=== PATIENT | female | born 1970 | race Caucasian/White ===

== ENCOUNTER 2018-07-16 08:07 | Emergency (ER) | payer BC ==
--- OUTSIDE RECORDS SUMMARY | 2018-07-16 08:16 | XMS REPORT ---
:1970 External Reference #:[id number] Author Organization [employer] Address [address] [place] [address] Phone [phone] Care Team Providers Name Role Phone Renate Davis MD Care Team Information Office Clerk Unavailable Renate Davis MD Primary Care Physician Unavailable Payers Type Date Identification Numbers Payment Provider Subscriber Commercial Policy Number: [id number] VANDA Laura Casey PayID: [id number] [address] [address] [place] [address] Commercial Effective: 2011 Policy Number: [id number] VANDA Laura Casey Expires: 2014 Group Number: [id number] [address] [address] PayID: [id number] [place] [address] Commercial Expires: 02/11/2018 Policy Number: Lifetime Benefits Elmer Casey [id number] [facility] PayID: [id number] [address] [place] [address] Problems Description No Information Family History Date Family Member(s) Problem(s) Comments Father Non-Hodkins Lymphoma Father Hypercholesterolemia Father Hypertension Mother Congestive Heart Failure (CHF) Mother Chronic Obstructive Pulmonary Disease (COPD) Mother Diabetes First Brother Hypercholesterolemia First Brother Hypertension First Sister Hypercholesterolemia Second Sister Hypercholesterolemia Social History Type Date Description Comments Marital Status Smoke-Free Home is smoke-free 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 2017 every day for 4 days Omeprazole 07/08/ Hx Capsules DR 20mg 30cap 1 by Frank 2014 - s mouth Ronald, 06/18/ every M.D. 2017 day. Fluticasone 07/08/ Hx Suspension 50mcg/Act 1unit 2 sprays Frank Propionate 2014 - each Ronald, 06/18/ nostril M.D. 2017 every day Fexofenadine 08/23/ Hx Tablets 60mg 60tab 1 by Frank HCL 2010 - mouth Ronald, 07/03/ twice a M.D. 2014 day Zithromax Z-Bo 08/23/ Hx Tablets 250mg 1Pak as Frank, 2010 - Ronald, 07/08/ M.D. 2014 Fluticasone 08/23/ Hx Suspension 50mcg/Act 1unit 2 sprays Frank Propionate 2010 - both Ronald, 11/11/ nostrils M.D. 2010 qd Prozac / Hx Capsules 20mg 60cap 1 po qd Unknown 0000 - s 2017 Crestor / Hx Tablets 5mg daily Unknown - 2014 Clonazepam / Hx Tablets 0.125mg Unknown 0000 - Dispers 2017 Rolaids / Hx Unknown 0000 - 2017 Multivitamins / Hx Capsules Unknown 0000 - 2017 Proair HFA / Hx Aerosol 108(90Base 2puffs Unknown 0000 - ) mcg/Act four 06/18/ times a 2017 day as needed for sob Vital Signs Date Vital Result Comment 06/19/2018 Weight 113.00 lb Height 61 inches 5'1" BMI (Body Mass Index) 21.3 kg/m2 BP Systolic 104 mmHg BP Diastolic 72 mmHg Heart Rate 71 /min O2 % BldC Oximetry 99 % Body Temperature 99.1 F Pain Level 0 07/08/2015 Weight 116.00 lb Height 61 inches 5'1" BMI (Body Mass Index) 21.9 kg/m2 BP Systolic 120 mmHg BP Diastolic 80 mmHg Heart Rate 68 /min Body Temperature 98.9 F 08/23/2011 Weight 144.00 lb Height 61.5 inches 5'1.50" BMI (Body Mass Index) 26.8 kg/m2 BP Systolic 102 mmHg BP Diastolic 72 mmHg Heart Rate 66 /min O2 % BldC Oximetry 97 % Body Temperature 98.1 F Results Description No Information Procedures Date CPT Code Description Status 07/15/2015 83148 Fiberoptic Laryngoscopy,Diag. Completed 07/08/2015 67628 Fiberoptic Laryngoscopy,Diag. Completed Encounters Type Date Location Provider CPT E/M Dx Office Visit 07/08/2015 8:00a [place] [id number] [phone] Office Visit 08/23/2011 10:00a [place] [address] [phone] 995.3 Plan of Care No Information Available
[2018-07-16 08:24] VITALS: BP 109/68
[2018-07-16] MEDS ORDERED: Ibuprofen TAB* 600 MG PO ONE (08:33)
--- NOTE | 2018-07-16 08:37 | UC ---
Shoulder Pain HPI - HPI Summary HPI Summary: 47-year-old woman. Chief complaint of right shoulder pain. It started 2 days ago. The pain is severe. There is decreased range of motion of the right shoulder. There is pain with attempted movement of the shoulder. There is no known injury. The patient woke with the pain. No chest pain or shortness of breath. No neck pain. No fevers. She has tried ibuprofen with mild relief. - History of Current Complaint Chief Complaint: UCUpperExtremity Stated Complaint: RIGHT SHOULDER PAIN Time Seen by Provider: 07/16/18 08:32 Hx Last Menstrual Period: couple of months ago Pain Intensity: 7 - Allergies/Home Medications Allergies/Adverse Reactions: Allergies Allergy/AdvReac Type Severity Reaction Status Date / Time hydrocodone Allergy Rash Verified 07/16/18 08:18 Penicillins Allergy Rash Verified 07/16/18 08:18 contrast dye AdvReac Itching Uncoded 07/16/18 08:18 Home Medications: Home Medications Levalbuterol HFA INHALER* [Xopenex Hfa Inhaler*] 2 puff INH QID PRN 07/16/18 [ History Confirmed 07/16/18] PMH/Surg Hx/FS Hx/Imm Hx Other Endocrine History: NO DIABETES Other Cardiovascular History: NO HYPERTENSION Other History Of: Negative For: HIV - Surgical History Surgical History: Yes Surgery Procedure, Year, and Place: 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 TUBAL LIGATION - 1992 - Family History Known Family History: Positive: Cardiac Disease, Diabetes - Social History Alcohol Use: None Substance Use Type: None Smoking Status (MU): Heavy Every Day Tobacco Smoker Type: Cigarettes Amount Used/How Often: 1 PPD Length of Time of Smoking/Using Tobacco: 19 Years Have You Smoked in the Last Year: Yes - Immunization History Most Recent Influenza Vaccination: Not the 2014/2015 Season Review of Systems Constitutional: Negative Skin: Negative Eyes: Negative ENT: Negative Respiratory: Negative Cardiovascular: Negative Motor: Decreased ROM Neurovascular: Negative Musculoskeletal: Decreased ROM - RT SHOULDER Neurological: Negative Psychological: Negative Is Patient Immunocompromised?: No All Other Systems Reviewed And Are Negative: Yes Physical Exam Triage Information Reviewed: Yes Appearance: Well-Appearing, Pain Distress - MILD. INCREASES WITH RT SHOULDER ROM Vital Signs: Initial Vital Signs Temp 98.8 F 07/16/18 08:19 Pulse 78 07/16/18 08:19 Resp 16 09/03/18 08:19 BP 109/68 07/16/18 08:19 Pulse Ox 100 07/16/18 08:19 Vital Signs Reviewed: Yes Eye Exam: Normal ENT Exam: Normal Neck exam: Normal Neck: Positive: Supple Respiratory Exam: Normal Respiratory: Positive: Lungs clear Cardiovascular: Positive: RRR Musculoskeletal: Positive: ROM Limited @, Other: - Shoulder extension abduction on the left is 180 with internal rotation T 10. Right shoulder extension and abduction limited to 40 with internal rotation L4 Neurological Exam: Normal Psychological Exam: Normal Skin Exam: Normal Shoulder Course/Dx - Course Course Of Treatment: I recommended ibuprofen 600 mg every 6 hours as needed. The patient can add Tylenol as directed as needed. We decided against a sling so as to avoid frozen shoulder. Follow-up will be with sports medicine and/or orthopedics. - Differential Dx/Diagnosis Provider Diagnoses: RIGHT SHOULDER CALCIFIC TENDONITIS Discharge - Sign-Out/Discharge Documenting (check all that apply): Patient Departure All imaging exams completed and their final reports reviewed: Yes - Discharge Plan Condition: Stable Disposition: HOME Patient Education Materials: Calcific Tendinitis (ED), Shoulder Pain (ED) Forms: *Work Release Referrals: Trang Bernard NP [Primary Care Provider] - [facility] [Outside] Additional Instructions: FOLLOW UP WITH YOUR PRIMARY CARE DOCTOR AND SPORTS MEDICINE/ORTHOPEDICS. DO THE RANGE OF MOTION EXERCISES DISCUSSED. GET RECHECKED FOR ANY WORSENING OF YOUR CONDITION OR QUESTIONS OR CONCERNS. - Billing Disposition and Condition Condition: STABLE Disposition: Home
--- NOTE | 2018-07-16 09:01 | RAD ---
Indication: Right shoulder pain. 4 views of the right shoulder demonstrates no definite fracture. There is likely calcific tendinitis of the distal supraspinatus tendon. No fracture is noted. IMPRESSION: Likely calcific tendinitis of the distal supraspinatus tendon without fracture.
== END 2018-07-16 09:31 | disposition home or self-care (01) ==
LOC: UCCORT 08:07
DX: M75.31 Calcific tendinitis of right shoulder (principal); Z88.6 Allergy status to analgesic agent; Z88.0 Allergy status to penicillin; F17.210 Nicotine dependence, cigarettes, uncomplicated
CPT/HCPCS: 99211; A9270-GY; G0463

== ENCOUNTER 2019-05-14 08:57 | Emergency (ER) | payer BC ==
--- OUTSIDE RECORDS SUMMARY | 2019-05-14 09:12 | XMS REPORT | Continuity of Care Document ---
:1970 External Reference #:[id number] Author Name Ty Napoles M.D. Address [address] [place] [address] Care Team Providers Name Role Phone Cam Cha OD Care Team Information Animal Daycare Provider Unavailable Family History Date Family Member(s) Observation Comments Father High BP Father Lymphoma Mother Diabetes Mother COPD Mother High BP Social History Type Date Description Comments Sex Unknown ETOH Use Denies alcohol use Tobacco Use Start: Unknown Light tobacco smoker (10 or fewer cigarettes/day) Smoking Status Reviewed: 05/04/19 Light tobacco smoker (10 or fewer cigarettes/day) Allergies, Adverse Reactions, Alerts Active Allergies Reaction Severity Comments Date Hydrocodone 05/04/2019 Penicillin 05/04/2019 Contrast Dye 05/04/2019 Medications Description No Active Medications Procedures Date Code Description Status 05/04/2019 37905 Refraction Completed 05/04/2019 25834 Eye Exam New Intermediate Completed Plan of Treatment 05/04/2019 - Ty Napoles M.D.H52.4 PresbyopiaFollow up:MATT Ward DR LH25.13 Age-related nuclear cataract, bilateralFollow up:MATT Ward DR
[2019-05-14 10:02] VITALS: BP 108/67
--- NOTE | 2019-05-14 10:14 | UC ---
Complaint Female HPI - HPI Summary HPI Summary: dysuria x 1 week urine had a bad odder , + frequency , urgency no fever, no chills, no flank pain - History Of Current Complaint Chief Complaint: UCGU Stated Complaint: URINARY Time Seen by Provider: 05/14/19 09:59 Hx Obtained From: Patient Hx Last Menstrual Period: tubal ?: No Onset/Duration: Gradual Onset, Lasting Weeks - 1, Still Present Timing: Constant Severity Initially: Moderate Severity Currently: Moderate Pain Intensity: 2 Character: Burning Aggravating Factor(s): Urination Associated Signs And Symptoms: Positive: Back Pain. Negative: Fever, Vaginal Bleeding/Discharge, Vaginal Discharge, Nausea, Vomiting(# Of Episodes =), Genital Swelling, Genital Blisters, Retained Foregin Body (Specify) - Allergies/Home Medications Allergies/Adverse Reactions: Allergies Allergy/AdvReac Type Severity Reaction Status Date / Time hydrocodone Allergy Rash Verified 05/14/19 09:59 Penicillins Allergy Rash Verified 05/14/19 09:59 contrast dye AdvReac Itching Uncoded 05/14/19 09:59 Home Medications: Home Medications Nicotine GUM* 4MG FRUIT FLAVOR [Nicotine GUM*] 4 mg PO Q1HR 05/14/19 [History Confirmed 05/14/19] PMH/Surg Hx/FS Hx/Imm Hx Respiratory History: Asthma Other History Of: Negative For: HIV - Surgical History Surgical History: Yes Surgery Procedure, Year, and Place: 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 TUBAL LIGATION - 1992. D&C - Family History Known Family History: Positive: None, Cardiac Disease, Diabetes - Social History Alcohol Use: None Substance Use Type: None Smoking Status (MU): Heavy Every Day Tobacco Smoker Type: Cigarettes Amount Used/How Often: 1 PPD Length of Time of Smoking/Using Tobacco: 19 Years Have You Smoked in the Last Year: Yes - Immunization History Most Recent Influenza Vaccination: Not the 2015/2015 Season Review of Systems All Other Systems Reviewed And Are Negative: Yes Constitutional: Positive: Negative Skin: Positive: Negative Eyes: Positive: Negative ENT: Positive: Negative Respiratory: Positive: Negative Genitourinary: Positive: Dysuria, Frequency, Urgency Is Patient Immunocompromised?: No Physical Exam Triage Information Reviewed: Yes Appearance: Well-Appearing, No Pain Distress, Well-Nourished Vital Signs: Initial Vital Signs Temp 98.7 F 05/14/19 09:57 Pulse 55 05/14/19 09:57 Resp 15 05/14/19 09:57 BP 108/67 05/14/19 09:57 Pulse Ox 100 05/14/19 09:57 Vital Signs Reviewed: Yes Eye Exam: Normal Eyes: Positive: Conjunctiva Clear ENT: Positive: Normal ENT inspection, Hearing grossly normal, Pharynx normal Neck: Positive: Supple, Nontender, No Lymphadenopathy Respiratory: Positive: Chest non-tender, Lungs clear, Normal breath sounds, No respiratory distress Cardiovascular: Positive: RRR, No Murmur, Pulses Normal Abdomen Description: Positive: Nontender, Soft. Negative: CVA Tenderness (R), CVA Tenderness (L), Distended, Guarding Bowel Sounds: Positive: Present Skin Exam: Normal Complaint Female Dx - Differential Dx/Diagnosis Provider Diagnosis: UTI (urinary tract infection) Discharge - Sign-Out/Discharge Documenting (check all that apply): Patient Departure All imaging exams completed and their final reports reviewed: No Studies - Discharge Plan Condition: Stable Disposition: HOME Referrals: Belle Vizcaino NP [Primary Care Provider] - - Billing Disposition and Condition Condition: STABLE Disposition: Home
== END 2019-05-14 10:27 | disposition home or self-care (01) ==
LOC: UCCORT 08:57
DX: N39.0 Urinary tract infection, site not specified (principal); B96.20 Unspecified Escherichia coli [E. coli] as the cause of diseases classified elsewhere; Z88.0 Allergy status to penicillin; F17.210 Nicotine dependence, cigarettes, uncomplicated
CPT/HCPCS: 81003; 87077; 87086; 87186; 99212; G0463

== ENCOUNTER 2019-09-30 11:08 | Emergency (ER) | payer SELFPAY ==
[2019-09-30 11:27] VITALS: BP 124/68
== END 2019-09-30 12:15 | disposition left against medical advice (07) ==
LOC: ED 11:08
DX: R42 Dizziness and giddiness (principal); R11.0 Nausea; Z53.21 Procedure and treatment not carried out due to patient leaving prior to being seen by health care provider